=== PATIENT | male | born 1965 | race Two or more races ===

== ENCOUNTER 2021-09-14 05:27 | Day surgery (SDC) | payer OTHER ==
[2021-09-13 16:45] VITALS: BMI 32.5
[2021-09-14] MEDS ORDERED: BUPIVACAINE HCL/PF 0.5% (5MG/ML) 10 ML VIAL ONE (07:52)
[2021-09-14] MEDS ORDERED: ROCURONIUM BROMIDE 50 MG/5 ML SYRINGE ONE ×2 (07:53→09:11)
[2021-09-14] MEDS ORDERED: MIDAZOLAM HCL 2 MG/2 ML SINGLE DOSE VIAL ONE ×2 (07:53)
[2021-09-14] MEDS ORDERED: PROPOFOL 20 ML ONE (07:53)
[2021-09-14] MEDS ORDERED: SUCCINYLCHOLINE CHLORIDE 200 MG/10 ML SYRINGE ONE (07:54)
[2021-09-14] MEDS ORDERED: KETOROLAC TROMETHAMINE 30 MG/1 ML VIAL ONE (07:55)
[2021-09-14] MEDS ORDERED: ceFAZolin SODIUM 1 GM VIAL ONE (07:55)
[2021-09-14] MEDS ORDERED: LIDOCAINE HCL/PF 2% SDV 5ML VIAL ONE (07:55)
[2021-09-14] MEDS ORDERED: DEXAMETHASONE SOD PHOSPHATE 4 MG/1 ML VIAL ONE (07:55)
[2021-09-14] MEDS ORDERED: ceFAZolin SODIUM 1 GM VIAL IVPB ONE (08:35)
[2021-09-14] MEDS ORDERED: oxyCODONE HCL 5 MG TABLET PO PRN (08:50)
[2021-09-14] MEDS ORDERED: ONDANSETRON 4 MG/2 ML VIAL IVPUSH PRN (08:50)
[2021-09-14] MEDS ORDERED: LACTATED RINGERS SOLUTION 1,000 ML IV SCH (09:00)
[2021-09-14] MEDS ORDERED: NEOSTIGMINE METHYLSULFATE 0.5 MG/ML - 10 ML MDV ONE (10:43)
[2021-09-14] MEDS ORDERED: GLYCOPYRROLATE 0.2 MG/1 ML VIAL ONE (10:43)
[2021-09-14 14:29] VITALS: BP 133/81; PULSE 58; TEMP 98
== END 2021-09-14 14:45 | disposition home or self-care (01) ==
LOC: JASU-SURG 05:27
PROVIDERS: ATTEND Surgery
PROC: 8E0W4CZ Robotic Assisted Procedure of Trunk Region, Percutaneous Endoscopic Approach (ICD-10-PCS; 2021-09-14)
PROC: 0YUA4JZ Supplement Bilateral Inguinal Region with Synthetic Substitute, Percutaneous Endoscopic Approach (ICD-10-PCS; principal; 2021-09-14 08:00)
DX: K40.20 Bilateral inguinal hernia, without obstruction or gangrene, not specified as recurrent (principal)
CPT/HCPCS: 49650; S2900; 94760

== ENCOUNTER 2022-02-04 04:47 | Day surgery (SDC) | payer OTHER ==
[2022-01-31 20:03] VITALS: BMI 32.5
[2022-02-04] MEDS ORDERED: SODIUM CHLORIDE 500 ML IV SCH (12:30)
[2022-02-04] MEDS ORDERED: MIDAZOLAM HCL 2 MG/2 ML SINGLE DOSE VIAL IVPUSH ONE (12:30)
[2022-02-04 14:37] VITALS: TEMP 98.9
[2022-02-04 14:44] VITALS: BP 124/84; PULSE 68
== END 2022-02-04 14:15 | disposition home or self-care (01) ==
LOC: JRADIR 04:47
PROVIDERS: ATTEND Surgery
PROC: 0Y953ZZ Drainage of Right Inguinal Region, Percutaneous Approach (ICD-10-PCS; principal; 2022-02-04)
DX: L76.34 Postprocedural seroma of skin and subcutaneous tissue following other procedure (principal)
CPT/HCPCS: 10030; 87070; 87075; 87116; 87205; 87206; 88108; 88305-TC